=== PATIENT | male | born 1965 | race Caucasian/White ===

== ENCOUNTER 2020-11-23 07:51 | Day surgery (SDC) | payer OTHER ==
[2020-11-20 11:38] VITALS: BMI 27.6
[~2020-11-23 07:51] MED LIST: LACTATED RINGERS SOLUTION 1,000 ML IV SCH; ONDANSETRON 4 MG/2 ML VIAL IVPUSH PRN; PROMETHAZINE HCL 25 MG/1 ML VIAL IVPUSH PRN; oxyCODONE HCL 5 MG TABLET PO PRN
[2020-11-23] MEDS ORDERED: LIDOCAINE HCL/PF 2% SDV 5ML VIAL ONE (10:15)
[2020-11-23] MEDS ORDERED: PROPOFOL 20 ML ONE (10:15)
[2020-11-23] MEDS ORDERED: MIDAZOLAM HCL 2 MG/2 ML SINGLE DOSE VIAL ONE (10:15)
[2020-11-23] MEDS ORDERED: KETOROLAC TROMETHAMINE 30 MG/1 ML VIAL ONE (10:16)
[2020-11-23] MEDS ORDERED: SODIUM CHLORIDE 0.9% P/F 10 ML VIAL IJ ONE (10:16)
[2020-11-23] MEDS ORDERED: DEXAMETHASONE SOD PHOSPHATE 4 MG/1 ML VIAL ONE (10:16)
[2020-11-23] MEDS ORDERED: ONDANSETRON 4 MG/2 ML VIAL ONE (10:16)
[2020-11-23] MEDS ORDERED: ceFAZolin SODIUM 1 GM VIAL ONE (10:16)
[2020-11-23] MEDS ORDERED: GLYCOPYRROLATE 0.2 MG/1 ML VIAL ONE (10:18)
[2020-11-23] MEDS ORDERED: BUPIVACAINE HCL/EPINEPHRINE/PF 30 ML VIAL IJ ONE (10:23)
[2020-11-23] MEDS ORDERED: BUPIVACAINE 0.25% /EPI 1:200,000 10 ML VIAL INF ONE (11:20)
[2020-11-23 12:07] VITALS: TEMP 97.8
[2020-11-23 15:12] VITALS: BP 114/77; PULSE 70
== END 2020-11-23 13:35 | disposition home or self-care (01) ==
LOC: FASU 07:51
PROVIDERS: ATTEND Orthopaedic Surgery
PROC: 0MBP0ZZ Excision of Left Knee Bursa and Ligament, Open Approach (ICD-10-PCS; principal; 2020-11-23 11:12)
DX: M70.42 Prepatellar bursitis, left knee (principal)
CPT/HCPCS: 88304-TC; 94760